=== PATIENT | female | born 1950 | race Two or more races ===

== ENCOUNTER 2022-09-14 09:32 | Outpatient (CLI) | payer OTHER | END 2022-09-14 09:41 | disposition home or self-care (01) | LOC: RX STUDY 09:32 | PROVIDERS: ATTEND Internal Medicine Gastroenterology | DX: R10.13 Epigastric pain (principal); K21.9 Gastro-esophageal reflux disease without esophagitis ==

== ENCOUNTER 2024-09-18 10:45 | Inpatient (IN) | payer OTHER ==
[~2024-09-18] VITALS: Ht 157.5 cm; Wt 71.2 kg
[2024-09-20] MEDS ORDERED: FLUOXETINE HCL40 MG PO (09:51)
[2024-09-20] MEDS ORDERED: CANDESARTAN CILE8 MG PO (09:51)
[2024-09-20] MEDS ORDERED: ARICEPT10 MG PO (09:52)
[2024-09-20] MEDS ORDERED: VISTARIL50 MG/ML PO (09:52)
[2024-09-20] MEDS ORDERED: LEVALBUTEROL TA15 GM IH (09:53)
[2024-09-20] MEDS ORDERED: PULMICORT FLEX90 MCG IH (09:54)
[2024-09-20] MEDS ORDERED: DICLOFENAC SOD150 ML TOP (09:55)
[2024-09-20] MEDS ORDERED: PROMETRIUM200 MG PO (09:56)
[2024-09-20] MEDS ORDERED: MONTELUKAST SOD10 MG PO (09:56)
[2024-09-20] MEDS ORDERED: HORIZANT300 MG PO (09:56)
[2024-09-20 10:18] VITALS: BP 114/77
[2024-09-20 10:35] LABS: HEMATOCRIT 40.2 % (36.0-45.00); HEMOGLOBIN 13.6 g/dL (12.0-15.00); MEAN CELL VOLUME 90.1 fL (80.00-100.00); MEAN CORPUSCULAR HEMOGLOBIN 30.4 pg (27.00-32.0); MEAN CORPUSCULAR HGB CONC 33.8 g/dl (32.0-36.0); PLATELET COUNT 335 K/uL (150-450); RED BLOOD COUNT 4.46 M/uL (4.00-6.00); RED CELL DISTRIBUTION WIDTH 14.5 % (11.5-14.5)
[2024-09-20 10:44] LABS: URINE APPEARANCE Turbid; URINE BILIRRUBIN Moderate (NEGATIVE); URINE BLOOD Moderate; URINE COLOR Dark Yellow; URINE GLUCOSE Negative (NEGATIVE); URINE KETONE Negative (NEGATIVE); URINE LEUKOCYTE Large; URINE NITRATE Negative; URINE PROTEIN Trace (NEGATIVE); URINE UROBILINOGEN 0.2 E.U./dl
[2024-09-20 10:47] LABS: URINE BACTERIA 1631.4 uL (0.0-1933); URINE CAST 2.79 uL (0.0-1.40); URINE EPITHELIAL CELLS 11.7 uL (0.0-38.8); URINE RBC 73.5 uL (0.0-20.8); URINE WBC 3635.1 uL (0.0-23.2)
[2024-09-20 11:01] LABS: PARTIAL THROMBOPLASTIN TIME 24.8 SECONDS (22.0-34.0); PROTHROMBIN TIME 10.9 SECONDS (9.0-11.5)
[2024-09-20 11:38] LABS: ALBUMIN 3.5 gm/dL (3.4-5.0); BILIRUBIN TOTAL 0.38 mg/dL (0.3-1.2); CALCIUM 9.8 mg/dL (8.5-10.1); CREATININE SERUM 0.9 mg/dL (0.55-1.02); GFR 61.21; GLOBULINA 3.2 G/DL (2.4-3.5); POTASSIUM 4.18 mEq/L (3.5-5.1); TOTAL PROTEIN 6.7 gm/dL (6.4-8.2)
[2024-09-20 12:59] LABS: RH POSITIVE
[2024-09-24] MEDS ORDERED: METHYLPREDNISOLONE ACETATE 80 MG/ML VIAL ONE (13:14)
[2024-09-24] MEDS ORDERED: CEFAZOLIN SODIUM 1,000 MG VIAL IV ONE (13:45)
[2024-09-24] MEDS ORDERED: TRANEXAMIC ACID 100MG/1ML (1000MG) AMPUL IV ONE ×2 (13:45)
[2024-09-24] MEDS ORDERED: MORPHINE SULFATE 4 MG/ML VIAL IV ONE ×3 (13:45→19:20)
[2024-09-24] MEDS ORDERED: LIDOCAINE HCL 1%/EPINEPHRINE 20ML VIAL IJ ONE (13:45)
[2024-09-24] MEDS ORDERED: KETOROLAC TROMETHAMINE 60 MG VIAL IM ONE (13:45)
[2024-09-24] MEDS ORDERED: GENTAMICIN SULFATE 40 MG/ML VIAL IV SCH (16:27)
[2024-09-24] MEDS ORDERED: MORPHINE SULFATE 2 MG/ML CARTRIDGE IV ONE (16:30)
[2024-09-24] MEDS ORDERED: MORPHINE SULFATE 4 MG/ML CARTRIDGE IV PRN (16:30)
[2024-09-24] MEDS ORDERED: SODIUM CHLORIDE 0.45 % 1,000 ML IV SCH (16:30)
[2024-09-24] MEDS ORDERED: ONDANSETRON HCL 2 MG/ML VIAL IV PRN (16:30)
[2024-09-24] MEDS ORDERED: MONTELUKAST SODIUM 10 MG TABLET PO SCH (17:00)
[2024-09-24] MEDS ORDERED: CEFAZOLIN SODIUM 1,000 MG VIAL IV SCH (18:00)
[2024-09-24] MEDS ORDERED: GENTAMICIN SULFATE 40 MG/ML VIAL ONE (20:11)
[2024-09-24] MEDS ORDERED: CEFAZOLIN SODIUM 1,000 MG VIAL ONE (20:11)
[2024-09-24 21:13] VITALS: BP 122/70; O2SAT 97
[2024-09-24 21:20] LABS: HEMATOCRIT 39.6 % (36.0-45.00); HEMOGLOBIN 13.4 g/dL (12.0-15.00); RED BLOOD COUNT 4.36 M/uL (4.00-6.00)
[2024-09-25 00:19] VITALS: BP 102/58; O2SAT 100
[2024-09-25 07:15] LABS: HEMOGLOBIN 12.6 g/dL (12.0-15.00); MEAN CELL VOLUME 89.5 fL (80.00-100.00); MEAN CORPUSCULAR HEMOGLOBIN 30.5 pg (27.00-32.0); MEAN CORPUSCULAR HGB CONC 34.1 g/dl (32.0-36.0); PLATELET COUNT 328 K/uL (150-450); RED BLOOD COUNT 4.14 M/uL (4.00-6.00); RED CELL DISTRIBUTION WIDTH 14.2 % (11.5-14.5)
[2024-09-25 08:00] VITALS: BP 146/80; O2SAT 98
[2024-09-25] MEDS ORDERED: ACETAMINOPHEN WITH CODEINE 1 UDTAB TABLET PO PRN (08:00)
[2024-09-25] MEDS ORDERED: BACITRACIN 28.35 GM OINT.TUBE TOP SCH (09:00)
[2024-09-25] MEDS ORDERED: SENNA/DOCUSATE SODIUM 1 TAB TABLET PO SCH (09:00)
[2024-09-25] MEDS ORDERED: CELECOXIB 200 MG CAPSULE PO SCH (09:00)
[2024-09-25] MEDS ORDERED: RIVAROXABAN 10 MG TAB PO SCH (09:00)
[2024-09-25] MEDS ORDERED: IRON FUM,PS/FOLIC/BCOMP,C NO.9 1 CAP CAPSULE PO SCH (09:00)
[2024-09-25] MEDS ORDERED: CANDESARTAN CILEXETIL 8 MG TAB PO SCH (09:00)
[2024-09-25] MEDS ORDERED: FLUOXETINE HCL 20 MG CAPSULE PO SCH (17:00)
[2024-09-25 17:14] VITALS: BP 150/79; O2SAT 95
[2024-09-25] MEDS ORDERED: IPRATROPIUM/ALBUTEROL SULFATE 3 ML AMPUL.NEB IH SCH (18:00)
[2024-09-26 00:52] VITALS: BP 147/82; O2SAT 96
[2024-09-26 07:30] LABS: HEMATOCRIT 34.1 % (36.0-45.00); HEMOGLOBIN 11.3 g/dL (12.0-15.00); MEAN CELL VOLUME 91.2 fL (80.00-100.00); MEAN CORPUSCULAR HEMOGLOBIN 30.2 pg (27.00-32.0); MEAN CORPUSCULAR HGB CONC 33.1 g/dl (32.0-36.0); PLATELET COUNT 296 K/uL (150-450); RED BLOOD COUNT 3.73 M/uL (4.00-6.00); RED CELL DISTRIBUTION WIDTH 14.1 % (11.5-14.5)
[2024-09-26] MEDS ORDERED: INTEGRA PLUS C1 EACH PO (08:23)
[2024-09-26] MEDS ORDERED: XARELTO10 MG PO (08:23)
[2024-09-26] MEDS ORDERED: Septra Ds Tablet PO (08:23)
[2024-09-26] MEDS ORDERED: ACETAMINOPHEN-1 EAC2 PO (08:23)
[2024-09-26 08:28] VITALS: BP 141/85; O2SAT 96
[2024-09-26] MEDS ORDERED: SULFAMETHOXAZOLE/TRIMETHOPRIM DS 1 TAB PO SCH (09:00)
[2024-09-26 16:00] VITALS: BP 156/81; O2SAT 94
[2024-09-26 16:30] VITALS: BP 146/85; O2SAT 98
[2024-09-27 00:38] VITALS: BP 113/75; O2SAT 98
[2024-09-27 10:29] VITALS: BP 114/75; O2SAT 95
== END 2024-09-27 16:41 | DRG 470 ==
LOC: O/R 09-24 06:00 → SURH 09-24 10:45 → SURG 09-24 19:23 → O/R 09-26 14:27 → SURG 09-26 14:28
PROVIDERS: ADMIT Orthopaedic Surgery Sports Medicine; ATTEND Orthopaedic Surgery Sports Medicine
PROC: 0SRD0J9 Replacement of Left Knee Joint with Synthetic Substitute, Cemented, Open Approach (ICD-10-PCS; principal; 2024-09-24 14:00)
PROC: B54CZZZ Ultrasonography of Left Lower Extremity Veins (ICD-10-PCS; 2024-09-25)
PROC: BW28ZZZ Computerized Tomography (CT Scan) of Head (ICD-10-PCS; 2024-09-26)
DX: M17.12 Unilateral primary osteoarthritis, left knee (principal); J44.9 Chronic obstructive pulmonary disease, unspecified; E78.5 Hyperlipidemia, unspecified; I10 Essential (primary) hypertension